=== PATIENT | male | born 1990 | race Two or more races ===

== ENCOUNTER 2020-11-23 21:49 | Emergency (ER) | payer MEDICAID ==
[~2020-11-23] VITALS: Ht 175.3 cm; Wt 110.0 kg
[2020-11-23 21:51] VITALS: BP 133/86
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
--- NOTE | 2020-11-23 22:38 | NUR ---
PT TAKEN TO CT, AND COMPLETED WITHOUT ISSUE. PT BACK TO ROOM. A&OX4, NO DISTRESS.
--- NOTE | 2020-11-23 23:27 | NUR ---
F/U AND D/C INSTRUCTIONS GIVEN TO PT AND HE V/U. PIV D/C'D AND CATH INTACT.
== END 2020-11-23 23:36 ==
LOC: ED 23:15
DX: S06.0X9A Concussion with loss of consciousness of unspecified duration, initial encounter (principal); S00.11XA Contusion of right eyelid and periocular area, initial encounter; F10.120 Alcohol abuse with intoxication, uncomplicated; Y90.0 Blood alcohol level of less than 20 mg/100 ml; W01.0XXA Fall on same level from slipping, tripping and stumbling without subsequent striking against object, initial encounter; Y93.89 Activity, other specified; Y92.89 Other specified places as the place of occurrence of the external cause; Y99.8 Other external cause status
CPT/HCPCS: 70450; 70486; 72125; 99285

== ENCOUNTER 2020-11-24 02:17 | Emergency (ER) | payer MEDICAID ==
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
--- NOTE | 2020-11-24 06:40 | NUR ---
Patient woke asking for water. Patient AAOx4, GCS 15. Provided water and advised patient he will attempt to ambulate after water. Report given to EMILIANO Dudley. Patient care transferred.
--- NOTE | 2020-11-24 06:56 | NUR ---
Report given to EMILIANO Dudley. Patient care transferred.
--- NOTE | 2020-11-24 07:39 | NUR ---
PT AMBULATORY TO THE BR W/ A STEADY GAIT.
[2020-11-24 07:47] VITALS: BP 124/74
== END 2020-11-24 07:50 | disposition home or self-care (01) ==
LOC: ED 05:30
DX: F10.120 Alcohol abuse with intoxication, uncomplicated (principal); Z72.9 Problem related to lifestyle, unspecified; Y90.0 Blood alcohol level of less than 20 mg/100 ml
CPT/HCPCS: 99285

== ENCOUNTER 2020-12-04 17:46 | Emergency (ER) | payer MEDICAID ==
[~2020-12-04] VITALS: Ht 175.3 cm; Wt 110.0 kg
[2020-12-04 18:05] VITALS: BP 137/91
[2020-12-04] MEDS ORDERED: THIAMINE 100MG TABLET PO ONE (18:30)
[2020-12-04] MEDS ORDERED: LORazepam 1MG TABLET PO ONE (18:30)
[2020-12-04] MEDS ORDERED: THIAMINE 100MG TABLET ONE (18:45)
[2020-12-04] MEDS ORDERED: LORazepam 1MG TABLET ONE (18:46)
--- NOTE | 2020-12-04 18:50 | NUR ---
PT MEDICATED PER [facility]
--- NOTE | 2020-12-04 19:44 | NUR ---
SPOKE WITH [facility]. THEY WOULD BE WILLING TO ACCEPT HIM TONIGHT. PT BEING TAKEN OVER THERE BY FATHER UPON DC
== END 2020-12-04 19:46 | disposition home or self-care (01) ==
LOC: ED 19:09
DX: F10.220 Alcohol dependence with intoxication, uncomplicated (principal); Z72.9 Problem related to lifestyle, unspecified; Y90.0 Blood alcohol level of less than 20 mg/100 ml
CPT/HCPCS: 99283